=== PATIENT | female | born 1970 | race Caucasian/White ===

== ENCOUNTER 2016-03-15 08:26 | Emergency (ER) | payer BC ==
[2016-03-15 08:56] VITALS: BP 148/75
--- NOTE | 2016-03-15 09:26 | UC ---
Respiratory Complaint HPI - HPI Summary HPI Summary: cough for a week. Chest feels burning and tight. Coughs to point of gagging. No ST. Mild sinus congestion. Yellowish phlegm. No asthma, non-smoker. - History of Current Complaint Chief Complaint: UCRespiratory Stated Complaint: COUGH,WHEEZING Time Seen by Provider: 03/15/16 09:11 Hx Obtained From: Patient Hx Last Menstrual Period: november 2015 ?: No Onset/Duration: Gradual Onset, Lasting Weeks - 1 Timing: Constant Severity Initially: Mild Severity Currently: Moderate Character: Sputum Description: - yellow/brown Aggravating Factors: Deep Breaths, Recumbent Position Alleviating Factors: Nothing Associated Signs And Symptoms: Positive: Chills, Wheezing, URI, Nasal Congestion , Hoarseness. Negative: Fever, Hemoptysis, Dizziness, Sinus Discomfort - Risk Factors Pulmonary Embolism Risk Factors: Negative Cardiac Risk Factors: Negative Pseudomonas Risk Factors: Negative Tuberculosis Risk Factors: Negative - Allergies/Home Medications Allergies/Adverse Reactions: Allergies Allergy/AdvReac Type Severity Reaction Status Date / Time Penicillins Allergy Unknown Verified 03/15/16 08:48 Reaction Details ees 400 Allergy Diarrhea Uncoded 03/15/16 08:48 Home Medications: Home Medications Ibuprofen [Advil] 400 mg PO Q4H PRN 03/15/16 [History Confirmed 03/15/16] [id number] [Mucinex Fast-Max Cold & S] 1 tab PO BID PRN 09/21 [History Confirmed 03/15/16] PMH/Surg Hx/FS Hx/Imm Hx Previously Healthy: Yes - Surgical History Surgical History: Yes Surgery Procedure, Year, and Place: hernia. ovarian cyst- fallopian tube. carpal tunnel - Family History Known Family History: Negative: Respiratory Disease - no asthma - Social History Occupation: Employed Full-time - [employer] Alcohol Use: None Substance Use Type: None Smoking Status (MU): Never Smoked Tobacco - Immunization History Most Recent Influenza Vaccination: not this season Review of Systems Constitutional: Negative Skin: Negative Eyes: Negative ENT: Nasal Discharge Respiratory: Cough Cardiovascular: Negative Gastrointestinal: Negative Genitourinary: Negative Motor: Negative Neurovascular: Negative Musculoskeletal: Negative Neurological: Negative Psychological: Negative All Other Systems Reviewed And Are Negative: Yes Physical Exam Triage Information Reviewed: Yes Appearance: Well-Appearing, No Pain Distress, Well-Nourished Vital Signs: Initial Vital Signs Temp 99.5 F 02/08/17 08:51 Pulse 75 03/15/16 08:51 Resp 16 03/15/16 08:51 BP 148/75 03/15/16 08:51 Pulse Ox 96 03/15/16 08:51 Vital Signs Reviewed: Yes Eye Exam: Normal ENT: Positive: Pharynx normal, Nasal congestion, TMs normal. Negative: Tonsillar swelling, Tonsillar exudate, Trismus, Muffled/hoarse voice Neck exam: Normal Neck: Positive: Supple Respiratory Exam: Normal Respiratory: Positive: Lungs clear, Normal breath sounds, No respiratory distress, No accessory muscle use Cardiovascular Exam: Normal Musculoskeletal Exam: Normal Neurological Exam: Normal Psychological Exam: Normal Skin Exam: Normal UC Diagnostic Evaluation - Laboratory O2 Sat by Pulse Oximetry: 96 Respiratory Course/Dx - Differential Dx/Diagnosis Differential Diagnosis/HQI/PQRI: Bronchitis, Lower Resp Infection, Sinusitis Provider Diagnoses: URI Discharge - Discharge Plan Condition: Stable Disposition: HOME Prescriptions: Albuterol HFA INHALER* [Ventolin HFA Inhaler*] 1 - 2 puff INH Q4H PRN #1 mdi PRN Reason: cough, wheezing Azithromycin TAB* [Zithromax TAB (Z-BRANT) 250 mg #6 tabs] 2 tab PO .TODAY, THEN 1 DAILY #1 brant Patient Education Materials: Upper Respiratory Infection (ED) Referrals: Amber BISHOP,Vinh Martinez [Primary Care Provider] -
== END 2016-03-15 09:38 | disposition home or self-care (01) ==
LOC: UCCORT 08:26
DX: J06.9 Acute upper respiratory infection, unspecified (principal); Z88.0 Allergy status to penicillin
CPT/HCPCS: 99202; G0463